=== PATIENT | female | born 1990 | race Two or more races ===

== ENCOUNTER 2016-10-10 14:29 | Emergency (ER) | payer SELFPAY ==
[~2016-10-10] VITALS: Ht 162.6 cm; Wt 63.5 kg
[2016-10-10 18:00] VITALS: BP 127/86
[2016-10-10] MEDS ORDERED: cefTRIAXone SOD 1,000 MG VL IM ONE (19:15)
[2016-10-10] MEDS ORDERED: PHENAZOPYRIDINE HCL 100 MG TAB PO ONE (19:15)
== END 2016-10-10 19:52 | disposition home or self-care (01) ==
LOC: ER 14:35
DX: N39.0 Urinary tract infection, site not specified (principal)
CPT/HCPCS: 81025; 96372; 99283; J0696